=== PATIENT | male | born 1990 | race Hispanic/Latino ===

== ENCOUNTER 2017-11-18 21:28 | Emergency (ER) | payer SELFPAY | END 2017-11-18 23:42 | disposition home or self-care (01) | LOC: EDH 21:28 | DX: L03.811 Cellulitis of head [any part, except face] (principal) ==

== ENCOUNTER 2021-12-18 22:15 | Inpatient (IN) | payer OTHER ==
[~2021-12-18] VITALS: Ht 170.2 cm; Wt 101.2 kg
[~2021-12-18 22:15] MED LIST: CLIN-141 PO; METF-444 PO
[2021-12-18 23:05] LABS: BASOPHILS % (AUTO) 0.4 % (0.0-5.0); EOSINOPHILS % (AUTO) 0.1 % (0.0-8.0); HEMATOCRIT 51.2 % (42-54); MEAN CORPUSCULAR HEMOGLOBIN 29.2 pg (27.0-33.0); MEAN CORPUSCULAR VOLUME 85.9 fL (79-99); MONOCYTES % (AUTO) 9.1 % (3.0-13.0); NEUTROPHILS % (AUTO) 79.6 % (40.0-77.0); PLATELET COUNT (AUTO) 347 K/uL (130-400); RED BLOOD CELL COUNT(AUTO) 5.96 MIL/uL (4.50-6.20); RED CELL DISTRIBUTION WIDTH 12.3 % (11.0-15.5); WHITE BLOOD COUNT (AUTO) 20.5 K/uL (4.8-10.8)
[2021-12-18 23:10] LABS: CREATININE 0.8 mg/dL (0.5-1.5); POTASSIUM 3.9 mmol/L (3.5-5.1)
[2021-12-18 23:14] LABS: ALBUMIN 3.4 g/dL (3.5-5.0); BILIRUBIN,TOTAL 0.9 mg/dL (0.2-1.0)
[2021-12-18] MEDS ORDERED: 0.9%NACL 50ML 50 ML IV ONE (23:23)
[2021-12-18] MEDS ORDERED: ZOSYN 3.375GM +NS 50ML IV ONE (23:30)
[2021-12-18] MEDS ORDERED: 0.9%NACL 1000ML 1,983 ML IV ONE (23:30)
[2021-12-18] MEDS ORDERED: IOHEXOL-350 75 ML VIAL IV ONE (23:34)
[2021-12-19] VITALS (27 sets, daily range): BP systolic 113–133; BP diastolic 69–84
[2021-12-19 00:04] LABS: ABG OXYGEN SATURATION 25.2 % (95.0-99.0); BASE EXCESS,VENOUS BLOOD GAS 3.9 (-2.0-3.0); HCO3,VENOUS BLOOD GAS 30.4 (21.0-28.0); PCO2,VENOUS BLOOD GAS 53 (35-48); PH,VENOUS BLOOD GAS 7.376 (7.350-7.450)
[2021-12-19 00:07] LABS: CRP QUANTITATIVE 248.5 mg/L (0.00-9.0)
[2021-12-19 00:58] LABS: APPEARANCE,URINE CLEAR (CLEAR); BILIRUBIN,URINE NEGATIVE (NEGATIVE); COLOR,URINE YELLOW (YELLOW); GLUCOSE, URINE (UA) >=1000 mg/dL (NEGATIVE); KETONES,URINE 5 mg/dL (NEGATIVE); LEUKOCYTE ESTERASE ,URINE NEGATIVE (NEGATIVE); NITRATE,URINE NEGATIVE (NEGATIVE); OCCULT BLOOD,URINE MODERATE (NEGATIVE); PROTEIN,URINE 30 mg/dL (NEGATIVE)
[2021-12-19 01:11] LABS: BACTERIA,URINE Rare /HPF (None Seen); WBC,URINE 0-1 /HPF (0-1)
[2021-12-19 01:12] LABS: SQUAMOUS EPITHELIAL CELL,UR None Seen /HPF (0-2)
[2021-12-19] MEDS ORDERED: CLINDAMYCIN IVPB 900MG/50ML 50 ML IV ONE (02:00)
[2021-12-19] MEDS ORDERED: VANCOMYCIN 1G VIAL IVPB ONE (02:00)
[2021-12-19] MEDS ORDERED: INSULIN HUMULIN R 100 UNIT/ML 3ML IV ONE (02:30)
[2021-12-19] MEDS ORDERED: ORPHENADRINE CITRATE 30 MG/ML ML IV ONE (02:30)
[2021-12-19] MEDS ORDERED: 0.9%NACL 1000ML 1,000 ML IV ONE (02:30)
[2021-12-19] MEDS ORDERED: VANCOMYCIN 1G/250ML KIT 250 ML IV ONE ×2 (02:47→03:30)
[2021-12-19] MEDS ORDERED: 0.9% NACL 250ML 250 ML ONE (02:48)
[2021-12-19] MEDS ORDERED: ACETAMINOPHEN 325 MG TAB PO PRN (03:00)
[2021-12-19] MEDS: 0.9%NACL 1000ML 1,000 ML IV SCH ×2 (03:02→14:22)
[2021-12-19] MEDS ORDERED: RENAL DOSE IV SCH (03:30)
[2021-12-19] MEDS ORDERED: DEXTROSE 50%-WATER 50 ML DISP.SYRIN IV PRN (03:30)
[2021-12-19 04:22] LABS: HEMOGLOBIN A1C 10.9 % (4.0-6.0)
[2021-12-19] MEDS ORDERED: VANCOMYCIN PROTOCOL PER PHARMACY IV SCH (06:30)
[2021-12-19] MEDS: ZOSYN 3.375GM +NS 50ML IV SCH ×3 (06:44→22:40)
[2021-12-19] MEDS: INSULIN R PO SS1 SQ SCH ×4 (06:48→22:42)
[2021-12-19] MEDS ORDERED: COMPOUND IV REFRIGERATED 1 EACH IVSOLN MISC PRN (07:00)
[2021-12-19] MEDS: FAMOTIDINE 20MG VIAL IV SCH ×2 (09:12→22:40)
[2021-12-19] MEDS: VANCOMYCIN 1.5GM/NS 250ML IV SCH ×4 (09:12→21:05)
[2021-12-19] MEDS: ACETAMINOPHEN 325 MG TAB PO PRN (09:21)
[2021-12-19] MEDS: INSULIN HUMULIN R 100 UNIT/ML 3ML SQ SCH ×3 (11:57→21:00)
[2021-12-19] MEDS ORDERED: PROPOFOL 10 MG/ML 20ML VIAL IV ONE (18:59)
[2021-12-19] MEDS ORDERED: MIDAZOLAM HCL 1 MG/ML 2ML VIAL ONE (18:59)
[2021-12-19] MEDS ORDERED: FENTANYL CITRATE PF 50 MCG/1 ML 5ML AMP IV ONE ×2 (18:59→20:00)
[2021-12-19] MEDS ORDERED: HYDROMORPHONE 1 MG INJ ONE (19:18)
[2021-12-19] MEDS ORDERED: ROCURONIUM 10MG/1ML SYR 10 MG/ML ML ONE (19:28)
[2021-12-19] MEDS ORDERED: ONDANSETRON 4MG INJ ONE (19:40)
[2021-12-19] MEDS ORDERED: PHENYLEPHRINE HCL 10 MG/ML 1ML VIAL IV ONE (19:58)
[2021-12-19] MEDS ORDERED: MEPERIDINE-PF 25 MG/ML SYG ONE ×2 (21:11→21:20)
[2021-12-20] VITALS (8 sets, daily range): BP systolic 95–142; BP diastolic 73–91
[2021-12-20] MEDS: MORPHINE 2 MG SYG IVP PRN ×4 (00:28→23:25)
[2021-12-20] MEDS: 0.9%NACL 1000ML 1,000 ML IV SCH ×3 (02:05→18:13)
[2021-12-20] MEDS ORDERED: PHARMACY COMMUNICATION MISC SCH (03:30)
[2021-12-20 05:04] LABS: HEMATOCRIT 41.4 % (42-54); MEAN CORPUSCULAR HGB CONC 33.1 g/dL (32.0-36.0); MEAN CORPUSCULAR VOLUME 87.5 fL (79-99); RED BLOOD CELL COUNT(AUTO) 4.73 MIL/uL (4.50-6.20); RED CELL DISTRIBUTION WIDTH 12.2 % (11.0-15.5); WHITE BLOOD COUNT (AUTO) 21.9 K/uL (4.8-10.8)
[2021-12-20 05:29] LABS: ALBUMIN 2.3 g/dL (3.5-5.0); CREATININE 0.5 mg/dL (0.5-1.5); POTASSIUM 4.2 mmol/L (3.5-5.1)
[2021-12-20 05:36] LABS: CRP QUANTITATIVE 266.5 mg/L (0.00-9.0)
[2021-12-20] MEDS: ZOSYN 3.375GM +NS 50ML IV SCH ×3 (05:45→23:19)
[2021-12-20] MEDS: INSULIN R PO SS1 SQ SCH ×4 (05:47→20:51)
[2021-12-20] MEDS: INSULIN HUMULIN R 100 UNIT/ML 3ML SQ SCH ×4 (05:56→20:51)
[2021-12-20] MEDS: VANCOMYCIN 1.5GM/NS 250ML IV SCH ×4 (09:29→20:57)
[2021-12-20] MEDS: FAMOTIDINE 20MG VIAL IV SCH ×2 (09:29→19:54)
[2021-12-20] MEDS: HYDROCODONE/ACETAMINOPHEN 5/325 MG TAB PO PRN ×2 (12:00→19:54)
[2021-12-21 03:46] VITALS: BP 124/79
[2021-12-21] MEDS: HYDROCODONE/ACETAMINOPHEN 5/325 MG TAB PO PRN ×3 (03:51→16:08)
[2021-12-21] MEDS: 0.9%NACL 1000ML 1,000 ML IV SCH ×2 (03:53→13:47)
[2021-12-21] MEDS: VANCOMYCIN 1.5GM/NS 250ML IV SCH ×6 (04:55→20:28)
[2021-12-21] MEDS: INSULIN R PO SS1 SQ SCH ×4 (06:16→20:17)
[2021-12-21] MEDS: INSULIN HUMULIN R 100 UNIT/ML 3ML SQ SCH ×4 (06:16→20:16)
[2021-12-21] MEDS: ZOSYN 3.375GM +NS 50ML IV SCH ×3 (06:51→22:20)
[2021-12-21 08:00] VITALS: BP 132/83
[2021-12-21] MEDS: FAMOTIDINE 20MG VIAL IV SCH ×2 (09:47→20:27)
[2021-12-21 12:00] VITALS: BP 125/82
[2021-12-21 16:00] VITALS: BP 141/83
[2021-12-21] MEDS: MORPHINE 2 MG SYG IVP PRN (18:50)
[2021-12-21 20:19] VITALS: BP 129/86
[2021-12-21 23:54] VITALS: BP 154/89
[2021-12-22] MEDS: MORPHINE 2 MG SYG IVP PRN ×4 (00:42→19:36)
[2021-12-22] MEDS: 0.9%NACL 1000ML 1,000 ML IV SCH ×3 (00:57→20:24)
[2021-12-22 04:23] VITALS: BP 134/88
[2021-12-22] MEDS: VANCOMYCIN 1.5GM/NS 250ML IV SCH ×2 (04:34)
[2021-12-22 05:36] LABS: BASOPHILS % (AUTO) 0.7 % (0.0-5.0); HEMATOCRIT 40.1 % (42-54); LYMPHOCYTES % (AUTO) 23.5 % (21.0-51.0); MEAN CORPUSCULAR HEMOGLOBIN 28.3 pg (27.0-33.0); MEAN CORPUSCULAR HGB CONC 32.9 g/dL (32.0-36.0); MEAN CORPUSCULAR VOLUME 85.9 fL (79-99); MONOCYTES % (AUTO) 8.3 % (3.0-13.0); NEUTROPHILS % (AUTO) 63.3 % (40.0-77.0); PLATELET COUNT (AUTO) 350 K/uL (130-400); RED BLOOD CELL COUNT(AUTO) 4.67 MIL/uL (4.50-6.20); RED CELL DISTRIBUTION WIDTH 11.9 % (11.0-15.5); WHITE BLOOD COUNT (AUTO) 9.7 K/uL (4.8-10.8)
[2021-12-22 06:05] LABS: ALBUMIN 2.2 g/dL (3.5-5.0); BILIRUBIN,TOTAL 0.4 mg/dL (0.2-1.0); CREATININE 0.6 mg/dL (0.5-1.5); POTASSIUM 3.7 mmol/L (3.5-5.1); TOTAL PROTEIN, SERUM 6.4 g/dL (6.0-8.3)
[2021-12-22] MEDS: ZOSYN 3.375GM +NS 50ML IV SCH ×3 (06:11→21:46)
[2021-12-22] MEDS: INSULIN HUMULIN R 100 UNIT/ML 3ML SQ SCH ×4 (06:36→20:56)
[2021-12-22] MEDS: INSULIN R PO SS1 SQ SCH ×4 (06:37→20:56)
[2021-12-22 07:59] VITALS: BP 138/89
[2021-12-22] MEDS: FAMOTIDINE 20MG VIAL IV SCH ×2 (09:00→19:36)
[2021-12-22 11:52] VITALS: BP 128/91
[2021-12-22] MEDS: VANCOMYCIN 1G 1.75 GM in 0.9% NACL 250ML 250 ML IV SCH ×2 (13:19→20:24)
[2021-12-22 16:00] VITALS: BP 132/87
[2021-12-22 20:27] VITALS: BP 143/99
[2021-12-22] MEDS: HYDROCODONE/ACETAMINOPHEN 5/325 MG TAB PO PRN (23:08)
[2021-12-22 23:33] VITALS: BP 136/87
[2021-12-23] MEDS: VANCOMYCIN 1G 1.75 GM in 0.9% NACL 250ML 250 ML IV SCH (03:49)
[2021-12-23 03:58] VITALS: BP 137/85
[2021-12-23 05:15] LABS: BASOPHILS % (AUTO) 1.1 % (0.0-5.0); EOSINOPHILS % (AUTO) 3.9 % (0.0-8.0); HEMATOCRIT 42.8 % (42-54); LYMPHOCYTES % (AUTO) 28.5 % (21.0-51.0); MEAN CORPUSCULAR HEMOGLOBIN 28.7 pg (27.0-33.0); MEAN CORPUSCULAR HGB CONC 32.7 g/dL (32.0-36.0); MEAN CORPUSCULAR VOLUME 87.7 fL (79-99); NEUTROPHILS % (AUTO) 54.5 % (40.0-77.0); PLATELET COUNT (AUTO) 407 K/uL (130-400); RED BLOOD CELL COUNT(AUTO) 4.88 MIL/uL (4.50-6.20); RED CELL DISTRIBUTION WIDTH 11.9 % (11.0-15.5); WHITE BLOOD COUNT (AUTO) 9.5 K/uL (4.8-10.8)
[2021-12-23 05:29] LABS: ALBUMIN 2.4 g/dL (3.5-5.0); BILIRUBIN,TOTAL 0.3 mg/dL (0.2-1.0); CREATININE 0.7 mg/dL (0.5-1.5); POTASSIUM 4.2 mmol/L (3.5-5.1); TOTAL PROTEIN, SERUM 6.9 g/dL (6.0-8.3)
[2021-12-23] MEDS: INSULIN HUMULIN R 100 UNIT/ML 3ML SQ SCH ×4 (05:40→20:14)
[2021-12-23] MEDS: INSULIN R PO SS1 SQ SCH ×4 (05:40→20:14)
[2021-12-23] MEDS: 0.9%NACL 1000ML 1,000 ML IV SCH ×3 (05:41→20:17)
[2021-12-23] MEDS: ZOSYN 3.375GM +NS 50ML IV SCH (06:04)
[2021-12-23 07:25] VITALS: BP 139/88
[2021-12-23] MEDS: FAMOTIDINE 20MG VIAL IV SCH ×2 (08:53→20:17)
[2021-12-23] MEDS: HYDROCODONE/ACETAMINOPHEN 5/325 MG TAB PO PRN ×3 (08:53→21:58)
[2021-12-23 11:25] VITALS: BP 135/78
[2021-12-23] MEDS: CLINDAMYCIN 150 MG CAP PO SCH ×2 (12:30→16:56)
[2021-12-23 15:20] VITALS: BP 150/101
[2021-12-23] MEDS: MORPHINE 2 MG SYG IVP PRN (16:08)
[2021-12-23] MEDS ORDERED: HYDROMORPHONE 0.5 MG SYG (0.5MG/0.5ML) ONE (16:28)
[2021-12-23] MEDS ORDERED: HYDROMORPHONE 0.5 MG SYG (0.5MG/0.5ML) IVP STA (16:32)
[2021-12-23] MEDS ORDERED: LIDOCAINE HCL 2% PF 20 ML JEL DISP.SYRIN MM SCH ×2 (17:00)
[2021-12-23] MEDS ORDERED: LIDOCAINE HCL 2% JELLY 5 ML TP SCH (17:00)
[2021-12-23] MEDS ORDERED: LIDOCAINE HCL 4% LTA SOL 4 ML VIAL MM SCH (17:30)
[2021-12-23 18:30] VITALS: BP 130/87
[2021-12-23 20:42] VITALS: BP 130/86
[2021-12-24] VITALS (7 sets, daily range): BP systolic 130–144; BP diastolic 66–90
[2021-12-24] MEDS: CLINDAMYCIN 150 MG CAP PO SCH ×2 (00:43→06:57)
[2021-12-24 05:11] LABS: EOSINOPHILS % (AUTO) 3.4 % (0.0-8.0); HEMATOCRIT 44.2 % (42-54); LYMPHOCYTES % (AUTO) 22.4 % (21.0-51.0); MEAN CORPUSCULAR HEMOGLOBIN 28.5 pg (27.0-33.0); MEAN CORPUSCULAR HGB CONC 32.8 g/dL (32.0-36.0); MEAN CORPUSCULAR VOLUME 86.8 fL (79-99); MONOCYTES % (AUTO) 8.3 % (3.0-13.0); NEUTROPHILS % (AUTO) 62.6 % (40.0-77.0); PLATELET COUNT (AUTO) 445 K/uL (130-400); RED BLOOD CELL COUNT(AUTO) 5.09 MIL/uL (4.50-6.20); RED CELL DISTRIBUTION WIDTH 11.8 % (11.0-15.5); WHITE BLOOD COUNT (AUTO) 12.8 K/uL (4.8-10.8)
[2021-12-24 05:30] LABS: ALBUMIN 2.5 g/dL (3.5-5.0); BILIRUBIN,TOTAL 0.3 mg/dL (0.2-1.0); CREATININE 0.9 mg/dL (0.5-1.5); POTASSIUM 3.7 mmol/L (3.5-5.1)
[2021-12-24] MEDS: INSULIN R PO SS1 SQ SCH ×4 (06:10→20:05)
[2021-12-24] MEDS: INSULIN HUMULIN R 100 UNIT/ML 3ML SQ SCH ×4 (06:10→20:05)
[2021-12-24] MEDS: HYDROCODONE/ACETAMINOPHEN 5/325 MG TAB PO PRN ×2 (06:34→18:33)
[2021-12-24] MEDS: AMOX/CLAV 875/125MG TAB PO SCH ×2 (10:11→19:58)
[2021-12-24] MEDS: FAMOTIDINE 20MG VIAL IV SCH ×2 (10:12→20:00)
[2021-12-24] MEDS: 0.9%NACL 1000ML 1,000 ML IV SCH ×2 (13:00→18:33)
[2021-12-24] MEDS: ACETAMINOPHEN 325 MG TAB PO PRN (21:59)
[2021-12-25] MEDS: HYDROCODONE/ACETAMINOPHEN 5/325 MG TAB PO PRN (00:36)
[2021-12-25 03:56] VITALS: BP 139/76
[2021-12-25] MEDS: 0.9%NACL 1000ML 1,000 ML IV SCH ×3 (04:44→23:45)
[2021-12-25 04:57] LABS: BASOPHILS % (AUTO) 0.7 % (0.0-5.0); EOSINOPHILS % (AUTO) 4.2 % (0.0-8.0); HEMATOCRIT 43.3 % (42-54); MEAN CORPUSCULAR HGB CONC 32.8 g/dL (32.0-36.0); MEAN CORPUSCULAR VOLUME 85.2 fL (79-99); MONOCYTES % (AUTO) 7.8 % (3.0-13.0); NEUTROPHILS % (AUTO) 53.3 % (40.0-77.0); PLATELET COUNT (AUTO) 456 K/uL (130-400); RED BLOOD CELL COUNT(AUTO) 5.08 MIL/uL (4.50-6.20); WHITE BLOOD COUNT (AUTO) 9.7 K/uL (4.8-10.8)
[2021-12-25 05:35] LABS: CREATININE 0.5 mg/dL (0.5-1.5)
[2021-12-25] MEDS: INSULIN HUMULIN R 100 UNIT/ML 3ML SQ SCH ×4 (06:24→21:30)
[2021-12-25] MEDS: INSULIN R PO SS1 SQ SCH ×4 (06:25→21:00)
[2021-12-25] MEDS: AMOX/CLAV 875/125MG TAB PO SCH ×2 (07:50→21:26)
[2021-12-25] MEDS: FAMOTIDINE 20MG VIAL IV SCH ×2 (07:50→21:25)
[2021-12-25] MEDS: ACETAMINOPHEN 325 MG TAB PO PRN ×4 (07:57→23:45)
[2021-12-25 08:00] VITALS: BP 136/94
[2021-12-25 12:00] VITALS: BP 139/83
[2021-12-25 16:00] VITALS: BP 133/89
[2021-12-25 20:00] VITALS: BP 131/82
[2021-12-25 23:45] VITALS: BP 142/87
[2021-12-26 04:00] VITALS: BP 134/87
[2021-12-26 04:38] LABS: BASOPHILS % (AUTO) 0.7 % (0.0-5.0); EOSINOPHILS % (AUTO) 3.9 % (0.0-8.0); LYMPHOCYTES % (AUTO) 27.6 % (21.0-51.0); MEAN CORPUSCULAR HEMOGLOBIN 28.3 pg (27.0-33.0); MEAN CORPUSCULAR VOLUME 85.9 fL (79-99); MONOCYTES % (AUTO) 8.1 % (3.0-13.0); NEUTROPHILS % (AUTO) 56.8 % (40.0-77.0); PLATELET COUNT (AUTO) 466 K/uL (130-400); RED BLOOD CELL COUNT(AUTO) 5.12 MIL/uL (4.50-6.20); RED CELL DISTRIBUTION WIDTH 11.9 % (11.0-15.5); WHITE BLOOD COUNT (AUTO) 10.1 K/uL (4.8-10.8)
[2021-12-26] MEDS: ACETAMINOPHEN 325 MG TAB PO PRN (04:46)
[2021-12-26 05:10] LABS: ALBUMIN 2.8 g/dL (3.5-5.0); BILIRUBIN,TOTAL 0.4 mg/dL (0.2-1.0); CREATININE 0.6 mg/dL (0.5-1.5); POTASSIUM 3.5 mmol/L (3.5-5.1)
[2021-12-26] MEDS: INSULIN HUMULIN R 100 UNIT/ML 3ML SQ SCH ×2 (06:08→11:30)
[2021-12-26] MEDS: INSULIN R PO SS1 SQ SCH ×2 (06:08→11:30)
[2021-12-26 08:00] VITALS: BP 135/87
[2021-12-26] MEDS: AMOX/CLAV 875/125MG TAB PO SCH (08:47)
[2021-12-26] MEDS: FAMOTIDINE 20MG VIAL IV SCH (08:47)
[2021-12-26] MEDS ORDERED: AMOX1TAB16 PO (09:52)
[2021-12-26 12:00] VITALS: BP 138/93
== END 2021-12-26 14:20 | disposition home or self-care (01) | DRG 717 ==
LOC: EDH 22:15 → EDHIP 22:16 → 3AH 12-19 05:23
PROVIDERS: ADMIT Hospitalist; ATTEND Hospitalist
PROC: 0VB50ZZ Excision of Scrotum, Open Approach (ICD-10-PCS; principal; 2021-12-19 19:50)
PROC: 0YB60ZZ Excision of Left Inguinal Region, Open Approach (ICD-10-PCS; 2021-12-19 19:50)
DX: N49.3 Fournier gangrene (principal); L03.314 Cellulitis of groin; E87.1 Hypo-osmolality and hyponatremia; L02.214 Cutaneous abscess of groin; N49.2 Inflammatory disorders of scrotum; Z20.822 Contact with and (suspected) exposure to COVID-19; E66.9 Obesity, unspecified; E11.65 Type 2 diabetes mellitus with hyperglycemia; E86.9 Volume depletion, unspecified; Z68.34 Body mass index [BMI] 34.0-34.9, adult; Z87.891 Personal history of nicotine dependence; Z83.3 Family history of diabetes mellitus
CPT/HCPCS: 36415; 36600; 74177; 80048; 80053; 80202; 81001; 82010; 82040; 82803; 82948; 83036; 83605; 83690; 84145; 85025; 85027; 86140; 87040; 87070; 87076; 87088; 87205; 87635; A4606; G0378; J1170; J1815; J2175; J2250; J2370; J2405; J2543; J2704; J3010; J3370; J3490; J7030; J7050; Q9967

== ENCOUNTER → 2021-12-28 | Outpatient (CLI) | payer OTHER ==
[~2021-12-28] MED LIST changes: +AMOX1TAB16 PO; -CLIN-141 PO; +LIDOCAINE HCL 4% LTA SOL 4 ML VIAL TP ONE; -METF-444 PO
== END | disposition home or self-care (01) ==
LOC: WHH 09:20
PROVIDERS: ATTEND Family Medicine
DX: T81.89XA Other complications of procedures, not elsewhere classified, initial encounter (principal); S31.501A Unspecified open wound of unspecified external genital organs, male, initial encounter; E11.628 Type 2 diabetes mellitus with other skin complications; E66.9 Obesity, unspecified; E11.52 Type 2 diabetes mellitus with diabetic peripheral angiopathy with gangrene; N49.3 Fournier gangrene; Z79.84 Long term (current) use of oral hypoglycemic drugs; Z87.891 Personal history of nicotine dependence; Z68.34 Body mass index [BMI] 34.0-34.9, adult; X58.XXXA Exposure to other specified factors, initial encounter; Y93.89 Activity, other specified; Y83.8 Other surgical procedures as the cause of abnormal reaction of the patient, or of later complication, without mention of misadventure at the time of the procedure; Y92.238 Other place in hospital as the place of occurrence of the external cause
CPT/HCPCS: 97605; 99215

== ENCOUNTER → 2022-01-04 | Outpatient (CLI) | payer OTHER | LOC: WHH 09:22 | PROVIDERS: ATTEND Family Medicine | DX: T81.89XD Other complications of procedures, not elsewhere classified, subsequent encounter (principal); S31.501D Unspecified open wound of unspecified external genital organs, male, subsequent encounter; E11.628 Type 2 diabetes mellitus with other skin complications; E11.52 Type 2 diabetes mellitus with diabetic peripheral angiopathy with gangrene; N49.3 Fournier gangrene; E66.9 Obesity, unspecified; Z87.891 Personal history of nicotine dependence; Z68.34 Body mass index [BMI] 34.0-34.9, adult; Z79.84 Long term (current) use of oral hypoglycemic drugs; Z79.899 Other long term (current) drug therapy; X58.XXXD Exposure to other specified factors, subsequent encounter; Y83.8 Other surgical procedures as the cause of abnormal reaction of the patient, or of later complication, without mention of misadventure at the time of the procedure | CPT/HCPCS: 97605; 99211 ==

== ENCOUNTER → 2022-01-07 | Outpatient (CLI) | payer OTHER | END | disposition home or self-care (01) | LOC: WHH 10:56 | PROVIDERS: ATTEND Family Medicine | DX: T81.89XD Other complications of procedures, not elsewhere classified, subsequent encounter (principal); S31.501D Unspecified open wound of unspecified external genital organs, male, subsequent encounter; E11.628 Type 2 diabetes mellitus with other skin complications; E11.52 Type 2 diabetes mellitus with diabetic peripheral angiopathy with gangrene; N49.3 Fournier gangrene; E66.9 Obesity, unspecified; Z87.891 Personal history of nicotine dependence; Z68.34 Body mass index [BMI] 34.0-34.9, adult; Z79.84 Long term (current) use of oral hypoglycemic drugs; Z79.899 Other long term (current) drug therapy; X58.XXXD Exposure to other specified factors, subsequent encounter; Y83.8 Other surgical procedures as the cause of abnormal reaction of the patient, or of later complication, without mention of misadventure at the time of the procedure | CPT/HCPCS: 99214 ==

== ENCOUNTER → 2022-02-04 | Outpatient (CLI) | payer OTHER ==
[~2022-02-04] MED LIST changes: -LIDOCAINE HCL 4% LTA SOL 4 ML VIAL TP ONE
== END ==
LOC: WHH 09:03
PROVIDERS: ATTEND Family Medicine
DX: T81.89XD Other complications of procedures, not elsewhere classified, subsequent encounter (principal); S31.501D Unspecified open wound of unspecified external genital organs, male, subsequent encounter; E11.628 Type 2 diabetes mellitus with other skin complications; E11.65 Type 2 diabetes mellitus with hyperglycemia; E11.52 Type 2 diabetes mellitus with diabetic peripheral angiopathy with gangrene; N49.3 Fournier gangrene; E66.9 Obesity, unspecified; Z87.891 Personal history of nicotine dependence; Z68.34 Body mass index [BMI] 34.0-34.9, adult; Z79.84 Long term (current) use of oral hypoglycemic drugs; Z79.899 Other long term (current) drug therapy; X58.XXXD Exposure to other specified factors, subsequent encounter; Y83.8 Other surgical procedures as the cause of abnormal reaction of the patient, or of later complication, without mention of misadventure at the time of the procedure
CPT/HCPCS: 99214